=== PATIENT | female | born 1970 | race Caucasian/White ===

== ENCOUNTER 2018-12-31 17:41 | Emergency (ER) | payer BC ==
[2018-12-31] MEDS ORDERED: DEXAMETHASONE INJ 10 MG/ML VIAL IM ONE (19:17)
[2018-12-31] MEDS ORDERED: KETOROLAC TROMETHAMINE INJ 60 MG/2 ML VIAL IM ONE (19:17)
--- NOTE | 2018-12-31 19:21 | ED.PDOC ---
History of Present Illness - General Time Seen by Provider: 12/31/18 19:17 Source: patient Additional Information: Guy Florez IS A 48-YEAR-OLD FEMALE WHO PRESENTS TO THE ed WITH CHIEF COMPLAINT OF SORE THROAT. pATIENT INDICATES HER PAIN BEGAN YESTERDAY. sHE BELIEVES SHE MAY HAVE SUBJECTIVE FEVER. pATIENT IS TAKING BY MOUTH BUT LESS TODAY. sHE INDICATES HER PAIN IS MODERATE IN INTENSITY AND IS A DULL ACHE. cHEST PAIN, SHORTNESS OF BREATH, OR ABDOMINAL PAIN. pATIENT IS OTHERWISE ASYMPTOMATIC - History of Present Illness Home Medications: Ambulatory Orders Acetaminophen W/ Codeine [Tylenol W/ CODEINE #3] 1 ea PO Q6H PRN #20 12/31/18 Amoxicillin 500 mg PO TID 7 Days #21 cap 12/31/18 Review of Systems - Review of Systems Constitutional: States: fever. Denies: chills EENTM: States: see HPI, throat pain. Denies: ear pain, ear discharge, throat swelling Respiratory: States: no symptoms reported. Denies: cough, short of breath Cardiology: Denies: chest pain, palpitations Gastrointestinal/Abdominal: States: no symptoms reported. Denies: nausea, vomiting Musculoskeletal: States: no symptoms reported Skin: States: no symptoms reported All other Systems: Reviewed and Negative Physical Exam - Physical Exam General Appearance: Alert, Comfortable, No apparent distress, Obese Throat Exam: other - MILD PHARYNGEAL ERYTHEMA. nEGATIVE TONSILLAR EXUDATE. uVULA IS MIDLINE. vOICE IS NORMAL. 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 wE WILL TREAT WITH AMOXICILLIN AND GIVE STEROIDS AND ANALGESICS AND PATIENT TO FOLLOW-UP WITH HER pcp. Vital signs stable, patient NAD and looks clinically well and is safe for discharge with outpatient follow-up. Follow-up instructions, discharge instructions and return to ED precautions discussed with patient. Patient voices understanding and willingness to comply with instructions. Patient happy with plan. Departure - Departure Clinical Impression: Pharyngitis Qualifiers: Pharyngitis/tonsillitis etiology: unspecified etiology Qualified Code(s): J02.9 - Acute pharyngitis, unspecified Time of Disposition: 19:24 Condition: Good Instructions: Sore Throat in Adults, Sore Throat, Adult (DC) Referrals: GEOVANNA MILLER [Primary Care Provider] - 1-5 Days Prescriptions: Acetaminophen W/ Codeine [Tylenol W/ CODEINE #3] 1 ea PO Q6H PRN #20 PRN Reason: Pain Amoxicillin 500 mg PO TID 7 Days #21 cap Home Medications: Ambulatory Orders Acetaminophen W/ Codeine [Tylenol W/ CODEINE #3] 1 ea PO Q6H PRN #20 12/31/18 Amoxicillin 500 mg PO TID 7 Days #21 cap 12/31/18
[2018-12-31 19:36] VITALS: BP 144/77; TEMP 99.7; O2SAT 97
[2018-12-31] MEDS ORDERED: AMOXICILLIN 500 MG CAP PO ONE (19:40)
== END 2018-12-31 19:56 | disposition home or self-care (01) ==
LOC: ER 17:41
DX: J02.9 Acute pharyngitis, unspecified (principal)
CPT/HCPCS: 87880; J1100; J1885